=== PATIENT | female | born 1985 | race Caucasian/White ===

== ENCOUNTER 2017-08-17 17:19 | Emergency (ER) | payer OTHER ==
[~2017-08-17] VITALS: Ht 160 cm; Wt 47.6 kg
[~2017-08-17 17:19] MED LIST: IBUPROFEN600 MG PO; LIDOCAINE VISC100 ML MM; NORCO 7.5-3251 EACH PO; PENICILLIN-VK500 MG PO; Peridex 473 ML473 ML PO
[2017-08-17] MEDS ORDERED: CEFADROXIL500 M1 PO (17:54)
[2017-08-17] MEDS ORDERED: ANAPROX DS550 MG PO (17:54)
== END 2017-08-17 18:04 | disposition home or self-care (01) ==
LOC: ED 17:19
DX: L08.9 Local infection of the skin and subcutaneous tissue, unspecified (principal)

== ENCOUNTER 2019-04-04 01:12 | Emergency (ER) | payer OTHER ==
[~2019-04-04] VITALS: Ht 160 cm; Wt 54.4 kg
[~2019-04-04 01:12] MED LIST changes: +ANAPROX DS550 MG PO; +CEFADROXIL500 M1 PO
[2019-04-04 02:32] LABS: BILIRUBIN NEGATIVE (NEGATIVE); BLOOD 3+ (NEGATIVE); CLARITY CLOUDY (CLEAR); COLOR YELLOW (YELLOW); GLUCOSE NEGATIVE (NEGATIVE); KETONE NEGATIVE (NEGATIVE); LEUKO ESTERASE 3+ (NEGATIVE); NITRITE POSITIVE (NEGATIVE); SPECIFIC GRAVITY 1.015 (1.005-1.030); UROBILINOGEN 0.2 E.U./dl (0.2-1.0)
[2019-04-04 02:39] LABS: WBC TNTC wbc/hpf (0-5)
[2019-04-04 02:40] LABS: BACTERIA 3+; RBC TNTC rbc/hpf (0-2)
[2019-04-04] MEDS ORDERED: CIPRO500 MG PO (03:35)
[2019-04-04] MEDS ORDERED: PYRIDIUM200 M1 PO (03:35)
== END 2019-04-04 03:40 | disposition home or self-care (01) ==
LOC: ED 01:12
PROVIDERS: Nurse Practitioner Family
DX: N39.0 Urinary tract infection, site not specified (principal); Z32.02 Encounter for pregnancy test, result negative

== ENCOUNTER 2022-03-25 13:10 | Emergency (ER) | payer OTHER ==
[~2022-03-25] VITALS: Wt 63.5 kg
[~2022-03-25 13:10] MED LIST changes: +CIPRO500 MG PO; +PREDNISONE20 M1 PO; +PYRIDIUM200 M1 PO
[2022-03-25] MEDS ORDERED: METHOCARBAMOL500 M1 PO (15:30)
[2022-03-25] MEDS ORDERED: PREDNISONE20 M1 PO (15:30)
== END 2022-03-25 16:00 | disposition home or self-care (01) ==
LOC: ED 13:10
DX: S30.0XXA Contusion of lower back and pelvis, initial encounter (principal); S92.331G Displaced fracture of third metatarsal bone, right foot, subsequent encounter for fracture with delayed healing; S92.321G Displaced fracture of second metatarsal bone, right foot, subsequent encounter for fracture with delayed healing; Z79.899 Other long term (current) drug therapy; Z79.2 Long term (current) use of antibiotics; W18.09XA Striking against other object with subsequent fall, initial encounter; Y93.89 Activity, other specified; Y92.89 Other specified places as the place of occurrence of the external cause; Y99.8 Other external cause status

== ENCOUNTER 2022-05-30 15:55 | Emergency (ER) | payer OTHER ==
[~2022-05-30 15:55] MED LIST changes: +METHOCARBAMOL500 M1 PO
[2022-05-30] MEDS ORDERED: BELBUCA300 MCG BC (19:49)
[2022-05-30] MEDS ORDERED: KETOROLAC10 MG PO (21:44)
== END 2022-05-30 21:58 | disposition home or self-care (01) ==
LOC: ED 15:55
DX: S92.341A Displaced fracture of fourth metatarsal bone, right foot, initial encounter for closed fracture (principal); W10.8XXA Fall (on) (from) other stairs and steps, initial encounter; Y93.89 Activity, other specified; Y92.89 Other specified places as the place of occurrence of the external cause; Y99.8 Other external cause status

== ENCOUNTER → 2022-07-03 | Outpatient (CLI) | payer OTHER ==
[~2022-07-03] MED LIST changes: +BELBUCA300 MCG BC; +KETOROLAC10 MG PO
== END | disposition home or self-care (01) ==
LOC: ORTHO 01:04
PROVIDERS: ATTEND Orthopaedic Surgery
DX: S92.341D Displaced fracture of fourth metatarsal bone, right foot, subsequent encounter for fracture with routine healing (principal); X58.XXXD Exposure to other specified factors, subsequent encounter